=== PATIENT | female | born 1930 | race Caucasian/White ===

== ENCOUNTER 2016-11-25 22:33 | Inpatient (IN) | payer OTHER ==
[2016-11-22 22:34] LABS: CALCIUM, SERUM 9.2 MG/DL (8.5-10.4); CHLORIDE, SERUM 107 MMOL/L (96-112); CO2 (CARBON DIOXIDE) 26 MMOL/L (24-34); CREATININE 1.18 MG/DL (0.55-1.02); GFR AFRICAN AMERICAN 49 ML/MIN (>=60); GFR NON AFRICAN AMERICAN 43 ML/MIN (>=60); GLUCOSE, SERUM 92 MG/DL (60-99); POTASSIUM, SERUM 5.1 MMOL/L (3.5-5.3); SODIUM, SERUM 139 MMOL/L (135-148)
[2016-11-22 22:38] LABS: BUN (BLOOD UREA NITROGEN) 25 MG/DL (6-23)
[~2016-11-25] VITALS: Ht 121.9 cm; Wt 49.0 kg
--- NOTE | ~2016-11-25 | HP ---
History And Physical [facility] [address] [place]. [address] NAME: TONI CORTES : 32 STATUS : ADM Aaliyah PAT#: [id number] AGE: 86 ADM/REG DATE : 11/25/16 MR#: [id number] REPORT SERV DATE: 11/26/16 DICTATED BY: JOE MONCADA DATE: 11/26/16 REPORT STATUS : Draft TRANSCRIBED BY: MODRandall DATE: 11/26/16 DATE OF ADMISSION: 11/25/2016 CHIEF COMPLAINT: Chest pain. HISTORY OF PRESENT ILLNESS: This is an 86-year-old female with a history of cardiomyopathy, atrial fibrillation on chronic anticoagulation, and a biventricular pacemaker placement, who presents to the emergency room at [facility] with the above-mentioned complaint. History is obtained from the patient, two granddaughters who are at bedside, and reviewing data available on the [employer] system. According to Ms Cortes and her family, she had been in her usual state of health until yesterday in the evening, when she had an episode with pain which she felt around her pacemaker site and lasted for about five minutes. Pain was unprovoked, not associated with diaphoresis or any cough. She had no aggravating or relieving factors as well. The patient has also been having numbness and pain in both her upper extremities off and on for about two months now. She says that pain lasts about 10-15 minutes and happens every so often here. The family was quite concerned, called EMS, and the patient was brought to the emergency room to be evaluated. In the emergency room, she had chest pain. Her troponins were elevated and the Cardiology Service was called by the ER physician and they advised admission to the Hospitalist Service and they will see in the morning. At the time of my evaluation, she denied any chest pain. She had no palpitations or orthopnea. She says her defibrillator did not go off. She had no orthopnea. She had no cough, hemoptysis, night sweats, or weight loss. She has not had any recent falls or loss of consciousness. No history of fevers, chills, nausea, vomiting, diarrhea, or dysuria. No history of hematemesis, hematochezia, or hematuria as well. No other history of recent travel or exposures other than those mentioned above. PAST MEDICAL HISTORY: As in history of present illness. She also has hypertension. SOCIAL HISTORY: She has never smoked. Does not drink or use recreational drugs. FAMILY HISTORY: Noncontributory. MEDICATIONS: Her medications at home were reviewed by me in the chart today and reordered by me. REVIEW OF SYSTEMS: As in history of present illness. All other systems were reviewed in detail and are quite unremarkable. PHYSICAL EXAMINATION: GENERAL: This is a pleasant 86-year-old, not in any acute distress. History And Physical [address] [address] NAME: TONI CORTES : 32 STATUS : ADM Aaliyah PAT#: [id number] AGE: 86 ADM/REG DATE : 11/25/16 MR#: [id number] REPORT SERV DATE: 11/26/16 DICTATED BY: JOE MONCADA DATE: 11/26/16 REPORT STATUS : Draft TRANSCRIBED BY: YOLIS DATE: 11/26/16 HEENT: Her head is atraumatic and normocephalic. She is alert, awake, oriented to time, place, and person. Pupils are equal, reacting to light and accommodating. External ocular muscles are intact. Membranes are moist and pink. Sclerae are nonicteric. NECK: Supple with no jugular venous distention, lymphadenopathy, or thyromegaly. LUNGS: Clear to auscultation with no wheezes, rubs, or crackles. HEART: Heart sounds were regular with no murmurs, rubs, or gallops. ABDOMEN: Soft and nontender. Bowel sounds are present. EXTREMITIES: No cyanosis, clubbing, or edema. NEUROLOGIC: Grossly intact. No focal sensory or motor deficits. Higher functions appeared intact. Gait was not examined. VITAL SIGNS: Temperature of 98.1, pulse 90, respirations 17 a minute, blood pressure was 116/73, and oxygen saturations were 96% on 2 L via nasal cannula. LABORATORY DATA: Reviewed on the [employer] system showed sodium of 140, potassium 5.2, chloride 109, CO2 of 24, BUN was 25 with a creatinine of 1.07, it is about her baseline. Her blood glucose was 102. Alkaline phosphatase was 124, ALT 14, AST 19, and troponin was 0.36 today. Her CBC showed a normal white blood cell count. Normal hemoglobin, hematocrit, and platelet count. Urinalysis was not done today. Films of the chest x-ray were reviewed by me on the PACS today and interpreted by me. Per my interpretation, there is normal bony architecture with a left-sided pacemaker defibrillator. There are no lobar consolidations or pleural effusions seen. A 12-lead EKG done in the emergency room showed biventricular pacemaker without any acute ST T changes. IMPRESSION: 1. Chest pain. 2. Non-ST elevation myocardial infarction. 3. Hypertension. 4. History of atrial fibrillation. 5. Cardiomyopathy. PLAN: We will admit Ms Cortes to the Cardiac Telemetry Floor for a 24-hour observation period. We will start her on IV heparin infusion and follow the non-STEMI protocol. We will start her on 325 mg of aspirin, nitroglycerin paste, and go from there. We will go ahead and consult Cardiology Service to see her in the morning. Meanwhile, we will repeat cardiac enzymes, EKG, and an echocardiogram as well. Further recommendations will follow after Cardiology has had a chance to see her in the morning. I have discussed the above plans with the patient and the family. Questions were answered and they are agreeable to the above recommendations. Hospitalist Service will be following her during her stay here. History And Physical [address] [address] NAME: TONI CORTES : 32 STATUS : ADM Aaliyah PAT#: [id number] AGE: 86 ADM/REG DATE : 11/25/16 MR#: [id number] REPORT SERV DATE: 11/26/16 DICTATED BY: JOE MONCADA DATE: 11/26/16 REPORT STATUS : Draft TRANSCRIBED BY: YOLIS DATE: 11/26/16 /YOLIS Joe Moncada M.D. / [id number] CC: Ronnie Garcia M.D.
--- NOTE | ~2016-11-25 | HP ---
History And Physical [address] [address] NAME: TONI CORTES : 32 STATUS : ADM Aaliyah PAT#: [id number] AGE: 86 ADM/REG DATE : 11/25/16 MR#: [id number] REPORT SERV DATE: 11/27/16 DICTATED BY: PRESTON EVANS DATE: 11/26/16 REPORT STATUS : Draft TRANSCRIBED BY: MODL DATE: 11/26/16 DATE OF ADMISSION: 11/25/2016 DIAGNOSES: 1. Non ST elevation myocardial infarction. 2. Hypertension. 3. Dyslipidemia. 4. History of cardiomyopathy with low ejection fraction, status post permanent pacemaker, status post ICD/Bi-V. PLAN: 1. Aspirin heparinization. 2. Beta blockade administration. 3. Echocardiogram to assess LV systolic function. 4. Possible invasive strategy as per Dr. Kumar. HISTORY OF PRESENT ILLNESS: Mrs. Cortes is an 86-year-old female with a prior history of cardiomyopathy status post Bi-V placement, currently presents with several days of arm pain associated with mild shortness of breath. Of note, she was seen in emergency room last night, at which point of time, her troponins were mildly elevated. However, they bumped to 5. At this point in time, she is currently pain free. EKG shows some borderline nonspecific ST-T wave changes. PAST MEDICAL HISTORY: As per the above. PAST SURGICAL HISTORY: Noncontributory. ALLERGIES: NONE. SOCIAL HISTORY: She does not smoke, drink, or do recreational drugs. MEDICATIONS: Include aspirin administration, atorvastatin 20 daily, carvedilol 25 b.i.d., magnesium, methimazole, ramipril, spironolactone 25 daily. REVIEW OF SYSTEMS: Review of systems is thoroughly reviewed, but noncontributory. PHYSICAL EXAMINATION: VITAL SIGNS: Blood pressure 110 systolic. NECK: Less than 7 cm JVP. Carotids were clear. LUNGS: Clear to auscultation and percussion. CARDIAC: PMI is nondisplaced. S1, S2. No murmurs, rubs, gallops. ABDOMEN: Soft, nontender. EXTREMITIES: No edema. NEURO: Nonfocal. History And Physical [address] [address] NAME: TONI CORTES : 32 STATUS : ADM Aaliyah PAT#: [id number] AGE: 86 ADM/REG DATE : 11/25/16 MR#: [id number] REPORT SERV DATE: 11/27/16 DICTATED BY: PRESTON EVANS DATE: 11/26/16 REPORT STATUS : Draft TRANSCRIBED BY: MODL DATE: 11/26/16 DATA: EKG shows ventricular paced rhythm. OTHER LABORATORY DATA: BMP within range of normal. CBC was normal. IMPRESSION: The patient presents at this point in time with non-ST elevation myocardial infarction . PLAN: Plan has been established as per the above. The risks of this approach have been assessed with the patient. FRANKLIN/YOLIS Preston Evans M.D. / [id number] CC: Ronnie Garcia M.D. Leonard Hays III, M.D., [facility], [facility]
--- NOTE | ~2016-11-25 | DS ---
Discharge Summary [facility] [address] [place]. [address] NAME: TONI CORTES : 32 STATUS : DIS IN PAT#: [id number] AGE: 86 ADM/REG DATE : 11/25/16 MR#: [id number] REPORT SERV DATE: 12/01/16 DICTATED BY: ANDREAS DELGADO DATE: 12/01/16 REPORT STATUS : Draft TRANSCRIBED BY: MODL DATE: 12/01/16 ADMISSION DATE: 11/25/2016 DISCHARGE DATE: 12/01/2016 CONSULTING PHYSICIAN: Dr. Kumar. FINAL DIAGNOSES: 1. Mvp-[id number]-hbatubs elevation myocardial infarction. 2. Coronary artery disease. 3. Systolic congestive heart failure. 4. Hypertension. 5. Nondilated cardiomyopathy. 6. Sick sinus syndrome, atrial flutter with permanent pacemaker and AICD. 7. Status post abdominal pain. 8. Hyperthyroidism. DIAGNOSTIC EXAMS: Echocardiogram consistent with nondilated cardiomyopathy, mild to moderate reduction in global left ventricular systolic function, severe left atrial enlargement, findings suggestive of atrial fibrillation, aortic sclerosis with mild regurgitation, EF of 45%. CAT scan of the abdomen and pelvis showing no evidence of acute abnormality, density in the dependent urinary bladder which may represent small layering calculi and/or previously treated contrast. Diverticulosis with no diverticulitis. Fat-containing ventral hernia above the level of the umbilicus. Bilateral renal cysts. Minimal bilateral focal areas of increased attenuation within the kidneys most likely hyperdense cysts, bilateral adrenal adenoma, hysterectomy, cardiomegaly, AICD, calcific atherosclerosis, scoliosis, spondylitis, and facet arthropathy. HOSPITAL COURSE: This is an 86-year-old female with a history of cardiomyopathy, atrial fibrillation, biventricular pacer, came in for chest pain. The patient was then admitted and was diagnosed with non-STEMI. The patient got a cardiac consultation, and a cardiac cath was done. She was found to have some occlusive disease and the procedure had to be terminated, as it follows a perforation of a small branch. The patient had embolization done and an echo done showed minimal posterior pericardial effusion. Repeat echo was done, which shows the same findings. The patient remained afebrile with stable vital signs. H and H remained stable. The patient was observed and on the day of discharge, she wants to go home. She did have a few episodes of diarrhea, which she said got better. It was transient. We checked for the white count, and it was only 9.6. The patient expressed her wishes to go home. She has a followup with Dr. Kumar on Monday for a possible stent placement to the blockage. She will be off the Plavix and Coumadin. The patient will be discharged on aspirin 81 mg a day, Lipitor 80 mg at bedtime, Coreg 25 mg twice a day, vitamin D 1000 units a day, magnesium oxide 400 mg a day, Tapazole 10 mg three times a day, Altace 2.5 mg a day, Aldactone 25 mg a day, nitroglycerin p.r.n. Discharge Summary [address] [address] NAME: TONI CORTES : 32 STATUS : DIS IN PAT#: [id number] AGE: 86 ADM/REG DATE : 11/25/16 MR#: [id number] REPORT SERV DATE: 12/01/16 DICTATED BY: ANDREAS DELGADO DATE: 12/01/16 REPORT STATUS : Draft TRANSCRIBED BY: YOLIS DATE: 12/01/16 The patient will also need to follow up with her PCP, Dr. Carly Figueroa, in one to two weeks. This has been explained to her in front of the daughter, and they agreed and understood the plan. JAS/YOLIS Andreas Delgado M.D. / [id number] CC: Ronnie Cross M.D.
[~2016-11-25 22:33] MED LIST: ALTA2.5 PO; ASAB PO; BUM1 PO; C1 PO; COREG25 PO; LIPITOR20 PO; MAGOX4 PO; SPIRO25 PO; TAPAZOLE10 MG PO
[2016-11-25 23:31] LABS: BASOPHILS 0.2 %; BASOPHILS ABSOLUTE 0.02 10/3/uL (0.0-0.16); EOSINOPHILS 1.4 %; EOSINOPHILS ABSOLUTE 0.13 10/3/uL (0.0-0.53); HEMATOCRIT 41.8 % (36.0-48.0); HEMOGLOBIN 13.5 g/dL (12.0-16.0); IMMATURE GRANULOCYTES 0.3 %; IMMATURE GRANULOCYTES ABSOLUTE 0.03 10/3/uL (0.0-0.11); LYMPHOCYTES 19.8 %; LYMPHOCYTES ABSOLUTE 1.79 10/3/uL (0.67-4.30); MEAN CORPUS HGB CONC 32.3 g/dL (32.0-36.0); MEAN CORPUSCULAR HEMOGLOB 28.7 pg (26.0-34.0); MEAN CORPUSCULAR VOLUME 88.7 fL (80-100); MEAN PLATELET VOLUME 10.2 fL (9.2-13.0); MONOCYTES 7.3 %; MONOCYTES ABSOLUTE 0.66 10/3/uL (0.21-1.20); NEUTROPHILS ABSOLUTE 6.39 10/3/uL (2.02-8.40); PLATELET COUNT 154 10/3/uL (150-400); RED CELL COUNT 4.71 10/6/uL (4.0-5.6)
[2016-11-25 23:33] LABS: ER CBC TAT 0 Hrs 04 MinsNP; MANUAL DIFF NO %
[2016-11-25 23:51] LABS: ALBUMIN 3.2 G/DL (3.5-5.0); ALKALINE PHOSPHATASE 124 U/L (45-117); BUN (BLOOD UREA NITROGEN) 25 MG/DL (6-23); CHLORIDE, SERUM 109 MMOL/L (96-112); CO2 (CARBON DIOXIDE) 24 MMOL/L (24-34); CREATININE 1.07 MG/DL (0.55-1.02); GFR AFRICAN AMERICAN 56 ML/MIN (>=60); GFR NON AFRICAN AMERICAN 48 ML/MIN (>=60); GLUCOSE, SERUM 102 MG/DL (60-99); POTASSIUM, SERUM 5.2 MMOL/L (3.5-5.3); SGOT(AST) 19 U/L (5-40); SGPT(ALT) 14 U/L (5-65); SODIUM, SERUM 140 MMOL/L (135-148); TOTAL BILIRUBIN 0.5 MG/DL (0-1.2); TOTAL PROTEIN 7.3 G/DL (6.0-8.5)
[2016-11-25 23:52] LABS: A/G RATIO 0.8 (0.7-1.9); GLOBULIN 4.1 G/DL (2.5-4.1); TROPONIN I 0.36 NG/ML (<0.05)
[2016-11-26] MEDS ORDERED: COREG25 PO (01:58)
[2016-11-26] MEDS ORDERED: COUMADIN3 MG PO (01:58)
[2016-11-26] MEDS ORDERED: LIPITOR20 PO (01:58)
[2016-11-26] MEDS ORDERED: HALF81 PO (02:00)
[2016-11-26] MEDS ORDERED: VITAMIN D31000 UNIT PO (02:00)
[2016-11-26] MEDS ORDERED: MAGOX4 PO (02:00)
[2016-11-26] MEDS ORDERED: ALTA2.5 PO (02:00)
[2016-11-26] MEDS ORDERED: TAPAZOLE10 MG PO (02:02)
[2016-11-26] MEDS ORDERED: SPIRO25 PO (02:02)
[2016-11-26 03:30] LABS: PROTIME (NOT ORD) 22.3 SEC (12.0-14.5)
[2016-11-26 03:42] LABS: TROPONIN I 2.73 NG/ML (<0.05)
[2016-11-26 07:50] LABS: CHOL/HDL RATIO(NOT ORDER) 2.4 (0-5)
[2016-11-26 08:33] LABS: ASCORBIC ACID (UR NOT ORDER) 20 (NEG); BILIRUBIN, URINE NEGATIVE (NEG); KETONE, URINE NEGATIVE (NEG); LEUKOCYTE ESTERASE(NOT OR NEG (NEG); WBC (NOT ORDERED) (RFLEX) 3 (0-5)
[2016-11-26 09:56] LABS: TROPONIN I 5.09 NG/ML (<0.05)
[2016-11-26 14:53] LABS: FREE T4 1.04 NG/DL (0.76-1.46); ULTRASENSITIVE TSH 0.106 MCIU/ML (0.358-3.740)
[2016-11-27 06:00] LABS: BUN (BLOOD UREA NITROGEN) 23 MG/DL (6-23); CALCIUM, SERUM 8.9 MG/DL (8.5-10.4); CHLORIDE, SERUM 110 MMOL/L (96-112); CO2 (CARBON DIOXIDE) 23 MMOL/L (24-34); CREATININE 1.08 MG/DL (0.55-1.02); GFR AFRICAN AMERICAN 55 ML/MIN (>=60); GFR NON AFRICAN AMERICAN 47 ML/MIN (>=60); GLUCOSE, SERUM 98 MG/DL (60-99); POTASSIUM, SERUM 4.6 MMOL/L (3.5-5.3); SODIUM, SERUM 141 MMOL/L (135-148)
[2016-11-27 06:01] LABS: BASOPHILS 0.1 %; BASOPHILS ABSOLUTE 0.01 10/3/uL (0.0-0.16); EOSINOPHILS 1.6 %; EOSINOPHILS ABSOLUTE 0.12 10/3/uL (0.0-0.53); HEMATOCRIT 39.4 % (36.0-48.0); HEMOGLOBIN 12.8 g/dL (12.0-16.0); IMMATURE GRANULOCYTES 0.3 %; IMMATURE GRANULOCYTES ABSOLUTE 0.02 10/3/uL (0.0-0.11); LYMPHOCYTES 32.1 %; LYMPHOCYTES ABSOLUTE 2.42 10/3/uL (0.67-4.30); MEAN CORPUS HGB CONC 32.5 g/dL (32.0-36.0); MEAN CORPUSCULAR HEMOGLOB 28.6 pg (26.0-34.0); MEAN CORPUSCULAR VOLUME 88.1 fL (80-100); MEAN PLATELET VOLUME 10.5 fL (9.2-13.0); MONOCYTES 8.7 %; MONOCYTES ABSOLUTE 0.66 10/3/uL (0.21-1.20); NEUTROPHILS 57.2 %; NEUTROPHILS ABSOLUTE 4.32 10/3/uL (2.02-8.40); PLATELET COUNT 138 10/3/uL (150-400); RBC DISTRIBUTION WIDTH 16.2 % (12.0-16.0); RED CELL COUNT 4.47 10/6/uL (4.0-5.6); WHITE BLOOD CELLS 7.6 10/3/uL (4.5-10.5)
[2016-11-27 06:02] LABS: MANUAL DIFF NO %
[2016-11-27 06:03] LABS: TROPONIN I 1.68 NG/ML (<0.05)
[2016-11-28 03:57] LABS: HEMOGLOBIN 14.2 g/dL (12.0-16.0); MEAN CORPUS HGB CONC 32.1 g/dL (32.0-36.0); MEAN CORPUSCULAR HEMOGLOB 28.9 pg (26.0-34.0); MEAN PLATELET VOLUME 10.3 fL (9.2-13.0); PLATELET COUNT 168 10/3/uL (150-400); RBC DISTRIBUTION WIDTH 16.1 % (12.0-16.0); RED CELL COUNT 4.92 10/6/uL (4.0-5.6); WHITE BLOOD CELLS 10.3 10/3/uL (4.5-10.5)
[2016-11-28 03:58] LABS: HEMATOCRIT 44.3 % (36.0-48.0); MANUAL DIFF YES %
[2016-11-28 04:09] LABS: INTERNATIONAL NORMAL RATI 1.5 UNITS (-)
[2016-11-28 04:11] LABS: BUN (BLOOD UREA NITROGEN) 22 MG/DL (6-23); CHLORIDE, SERUM 106 MMOL/L (96-112); CHOL/HDL RATIO(NOT ORDER) 2.5 (0-5); CHOLESTEROL 96 MG/DL (< 200); CO2 (CARBON DIOXIDE) 26 MMOL/L (24-34); CREATININE 1.17 MG/DL (0.55-1.02); GFR AFRICAN AMERICAN 50 ML/MIN (>=60); GFR NON AFRICAN AMERICAN 43 ML/MIN (>=60); GLUCOSE, SERUM 87 MG/DL (60-99); HDL CHOLESTEROL 38 MG/DL (> 49); LDL CHOLESTEROL 39 MG/DL (< 130); NON-HDL CHOLESTEROL 58 MG/DL (< 160); POTASSIUM, SERUM 4.8 MMOL/L (3.5-5.3); PROTIME (NOT ORD) 18.4 SEC (12.0-14.5); SODIUM, SERUM 139 MMOL/L (135-148); TRIGLYCERIDE 96 MG/DL (< 150)
[2016-11-28 04:26] LABS: BAND NEUTROPHILS 1 %; EOSINOPHILS 1 %; LYMPHOCYTES 38 %; LYMPHOCYTES ABSOLUTE (CALC) 3.91 10/3/uL (0.67-4.30); MONOCYTES 3 %; MONOCYTES ABSOLUTE (CALC) 0.31 10/3/uL (0.21-1.20); NEUTROPHILS ABSOLUTE (CALC) 5.97 10/3/uL (2.02-8.40); PLATELET ESTIMATE ADQ (ADEQUATE); SEGMENTED NEUTROPHIL (0) 57 %; TOTAL NUCLEATED CELLS 100
[2016-11-28 04:27] LABS: ACANTHOCYTES OCC (0-2/OIF); ELLIPTOCYTES 1+ (3-10/OIF) (0-2/OIF)
[2016-11-29 08:14] LABS: BASOPHILS 0.1 %; BASOPHILS ABSOLUTE 0.01 10/3/uL (0.0-0.16); EOSINOPHILS 1.5 %; EOSINOPHILS ABSOLUTE 0.11 10/3/uL (0.0-0.53); HEMATOCRIT 42.1 % (36.0-48.0); HEMOGLOBIN 13.3 g/dL (12.0-16.0); IMMATURE GRANULOCYTES 0.4 %; IMMATURE GRANULOCYTES ABSOLUTE 0.03 10/3/uL (0.0-0.11); LYMPHOCYTES 23.1 %; LYMPHOCYTES ABSOLUTE 1.68 10/3/uL (0.67-4.30); MEAN CORPUS HGB CONC 31.6 g/dL (32.0-36.0); MEAN CORPUSCULAR HEMOGLOB 28.8 pg (26.0-34.0); MEAN CORPUSCULAR VOLUME 91.1 fL (80-100); MEAN PLATELET VOLUME 10.6 fL (9.2-13.0); MONOCYTES 8.4 %; MONOCYTES ABSOLUTE 0.61 10/3/uL (0.21-1.20); NEUTROPHILS 66.5 %; NEUTROPHILS ABSOLUTE 4.82 10/3/uL (2.02-8.40); PLATELET COUNT 146 10/3/uL (150-400); RBC DISTRIBUTION WIDTH 15.9 % (12.0-16.0); RED CELL COUNT 4.62 10/6/uL (4.0-5.6); WHITE BLOOD CELLS 7.3 10/3/uL (4.5-10.5)
[2016-11-29 08:16] LABS: MANUAL DIFF NO %
[2016-11-29 08:25] LABS: INTERNATIONAL NORMAL RATI 1.5 UNITS (-); PROTIME (NOT ORD) 17.7 SEC (12.0-14.5)
[2016-11-29 08:26] LABS: PARTIAL THROMBO TIME 82.3 SEC (22.5-37.2)
[2016-11-29 08:33] LABS: BUN (BLOOD UREA NITROGEN) 21 MG/DL (6-23); CALCIUM, SERUM 9.3 MG/DL (8.5-10.4); CHLORIDE, SERUM 107 MMOL/L (96-112); CHOL/HDL RATIO(NOT ORDER) 2.2 (0-5); CHOLESTEROL 87 MG/DL (< 200); CO2 (CARBON DIOXIDE) 20 MMOL/L (24-34); CREATININE 1.23 MG/DL (0.55-1.02); GFR AFRICAN AMERICAN 47 ML/MIN (>=60); GFR NON AFRICAN AMERICAN 40 ML/MIN (>=60); GLUCOSE, SERUM 138 MG/DL (60-99); HDL CHOLESTEROL 39 MG/DL (> 49); LDL CHOLESTEROL 33 MG/DL (< 130); NON-HDL CHOLESTEROL 48 MG/DL (< 160); POTASSIUM, SERUM 4.4 MMOL/L (3.5-5.3); SODIUM, SERUM 136 MMOL/L (135-148); TRIGLYCERIDE 79 MG/DL (< 150)
[2016-11-30 03:48] LABS: BASOPHILS 0.1 %; BASOPHILS ABSOLUTE 0.01 10/3/uL (0.0-0.16); EOSINOPHILS 1.2 %; EOSINOPHILS ABSOLUTE 0.09 10/3/uL (0.0-0.53); HEMOGLOBIN 11.2 g/dL (12.0-16.0); IMMATURE GRANULOCYTES 0.1 %; IMMATURE GRANULOCYTES ABSOLUTE 0.01 10/3/uL (0.0-0.11); LYMPHOCYTES 14.2 %; MEAN CORPUS HGB CONC 31.5 g/dL (32.0-36.0); MEAN CORPUSCULAR HEMOGLOB 28.5 pg (26.0-34.0); MEAN CORPUSCULAR VOLUME 90.3 fL (80-100); MEAN PLATELET VOLUME 10.5 fL (9.2-13.0); MONOCYTES 10.5 %; MONOCYTES ABSOLUTE 0.81 10/3/uL (0.21-1.20); NEUTROPHILS 73.9 %; NEUTROPHILS ABSOLUTE 5.73 10/3/uL (2.02-8.40); PLATELET COUNT 123 10/3/uL (150-400); RED CELL COUNT 3.93 10/6/uL (4.0-5.6); WHITE BLOOD CELLS 7.8 10/3/uL (4.5-10.5)
[2016-11-30 03:49] LABS: HEMATOCRIT 35.5 % (36.0-48.0); MANUAL DIFF NO %
[2016-11-30 03:55] LABS: INTERNATIONAL NORMAL RATI 1.4 UNITS (-); PROTIME (NOT ORD) 16.8 SEC (12.0-14.5)
[2016-11-30 04:00] LABS: CHLORIDE, SERUM 111 MMOL/L (96-112); CO2 (CARBON DIOXIDE) 23 MMOL/L (24-34); CREATININE 0.85 MG/DL (0.55-1.02); GFR AFRICAN AMERICAN 73 ML/MIN (>=60); GFR NON AFRICAN AMERICAN 63 ML/MIN (>=60); POTASSIUM, SERUM 4.2 MMOL/L (3.5-5.3); SODIUM, SERUM 141 MMOL/L (135-148)
[2016-11-30 04:01] LABS: BUN (BLOOD UREA NITROGEN) 17 MG/DL (6-23); CALCIUM, SERUM 8.1 MG/DL (8.5-10.4); GLUCOSE, SERUM 99 MG/DL (60-99)
[2016-11-30 12:23] LABS: ASCORBIC ACID (UR NOT ORDER) NEG (NEG); BILIRUBIN, URINE NEGATIVE (NEG); KETONE, URINE TRACE MG/DL (NEG); WBC (NOT ORDERED) (RFLEX) 7 (0-5)
[2016-11-30 12:24] LABS: LEUKOCYTE ESTERASE(NOT OR TRACE (NEG)
[2016-11-30] MEDS ORDERED: NTG150 SL (14:06)
[2016-12-01 05:05] LABS: BUN (BLOOD UREA NITROGEN) 18 MG/DL (6-23); CALCIUM, SERUM 9.3 MG/DL (8.5-10.4); CHLORIDE, SERUM 109 MMOL/L (96-112); CO2 (CARBON DIOXIDE) 24 MMOL/L (24-34); GFR AFRICAN AMERICAN 68 ML/MIN (>=60); GFR NON AFRICAN AMERICAN 59 ML/MIN (>=60); GLUCOSE, SERUM 87 MG/DL (60-99); POTASSIUM, SERUM 4.4 MMOL/L (3.5-5.3); SODIUM, SERUM 138 MMOL/L (135-148)
[2016-12-01 05:07] LABS: BASOPHILS 0.1 %; BASOPHILS ABSOLUTE 0.01 10/3/uL (0.0-0.16); HEMATOCRIT 36.6 % (36.0-48.0); HEMOGLOBIN 11.7 g/dL (12.0-16.0); IMMATURE GRANULOCYTES 0.3 %; IMMATURE GRANULOCYTES ABSOLUTE 0.03 10/3/uL (0.0-0.11); LYMPHOCYTES 19.4 %; LYMPHOCYTES ABSOLUTE 1.87 10/3/uL (0.67-4.30); MEAN CORPUSCULAR VOLUME 90.8 fL (80-100); MEAN PLATELET VOLUME 10.7 fL (9.2-13.0); MONOCYTES ABSOLUTE 1.06 10/3/uL (0.21-1.20); NEUTROPHILS 68.2 %; NEUTROPHILS ABSOLUTE 6.56 10/3/uL (2.02-8.40); PLATELET COUNT 143 10/3/uL (150-400); RED CELL COUNT 4.03 10/6/uL (4.0-5.6); WHITE BLOOD CELLS 9.6 10/3/uL (4.5-10.5)
[2016-12-01 05:10] LABS: MANUAL DIFF NO %
[2016-12-01] MEDS ORDERED: LIPITOR80 MG PO (11:19)
== END 2016-12-01 13:14 | disposition home or self-care (01) | DRG 251 ==
LOC: ENRESERV → ENRESERVTM → ENRESERVDT → ER 22:33 → SSU1 23:59 → 5NO 23:59 → SSU1 11-29 17:02 → 5NO 11-30 17:46
PROVIDERS: Emergency Medicine; Family Medicine; Hospitalist; Internal Medicine; Internal Medicine Cardiovascular Disease; Internal Medicine Pulmonary Disease
PROC: 4A023N7 Measurement of Cardiac Sampling and Pressure, Left Heart, Percutaneous Approach (ICD-10-PCS; principal; 2016-11-29)
PROC: 02703ZZ Dilation of Coronary Artery, One Artery, Percutaneous Approach (ICD-10-PCS; 2016-11-29)
PROC: B2111ZZ Fluoroscopy of Multiple Coronary Arteries using Low Osmolar Contrast (ICD-10-PCS; 2016-11-29)
DX: I21.4 Non-ST elevation (NSTEMI) myocardial infarction (principal); I42.9 Cardiomyopathy, unspecified; I11.0 Hypertensive heart disease with heart failure; I50.22 Chronic systolic (congestive) heart failure; I48.92 Unspecified atrial flutter; I97.51 Accidental puncture and laceration of a circulatory system organ or structure during a circulatory system procedure; I49.5 Sick sinus syndrome; I48.2 Chronic atrial fibrillation; E78.5 Hyperlipidemia, unspecified; I25.10 Atherosclerotic heart disease of native coronary artery without angina pectoris; Z79.01 Long term (current) use of anticoagulants
CPT/HCPCS: 71010; 74176; 74178; 80048; 80053; 80061; 81001; 83735; 84439; 84443; 84460; 84484; 85025; 85347; 85610; 85730; 93005; 93307; 93308; 99285; A9270-GY; C1725; C1760; C1769; C1887; C1894; C8929; J2250; J2370; J2405; J2550; J2720; J3010; J3430; Q9957; Q9967